=== PATIENT | male | born 1960 | race Caucasian/White ===

== ENCOUNTER 2018-01-24 13:36 | Outpatient (REF) | payer MEDICAID, SELFPAY ==
[2018-01-24 22:33] LABS: COMMENT (LAB VIEW ONLY) 84.69 mg/dL; Microalb ug/mg Crea 12.2 ug/mg Cr
== END 2018-01-24 13:56 ==
LOC: NCHCN 13:36
PROVIDERS: PCP Internal Medicine; Visit Provider Internal Medicine
DX: E11.9 Type 2 diabetes mellitus without complications (principal)
CPT/HCPCS: 82043; 82570

== ENCOUNTER 2018-07-25 12:47 | Outpatient (REF) | payer MEDICAID, SELFPAY ==
[2018-07-25 22:30] LABS: Anion Gap 9.4 mmol/L (3-11); BUN 15 mg/dL (7-18); CO2 28.6 mmol/L (21.0-32.0); Calcium 9.9 mg/dL (8.5-10.1); Chloride 100 mmol/L (98-107); Glucose 240 mg/dL (70-100); Potassium 4.8 mmol/L (3.5-5.1); Sodium 138 mmol/L (136-145)
== END 2018-07-25 13:07 ==
LOC: NCHCN 12:47
PROVIDERS: PCP Internal Medicine; Visit Provider Internal Medicine
DX: E11.65 Type 2 diabetes mellitus with hyperglycemia (principal); F43.20 Adjustment disorder, unspecified; E66.9 Obesity, unspecified
CPT/HCPCS: 80048

== ENCOUNTER 2019-11-07 16:29 | Outpatient (REF) | payer MEDICAID, SELFPAY ==
[2019-11-07 21:04] LABS: COMMENT (LAB VIEW ONLY) 63.17 mg/dL; Microalb ug/mg Crea 11.4 ug/mg Cr
== END 2019-11-07 16:49 ==
LOC: NCHCN 16:29
PROVIDERS: PCP Internal Medicine; Visit Provider Internal Medicine
DX: E11.65 Type 2 diabetes mellitus with hyperglycemia (principal)
CPT/HCPCS: 82043; 82570

== ENCOUNTER 2020-01-31 12:20 | Outpatient (REF) | payer MEDICAID, SELFPAY ==
[2020-01-31 20:51] LABS: ALT 26 U/L (16-63); AST 21 U/L (15-37); Alkaline Phosphatase 58 U/L (46-116); Bilirubin, Direct 0.19 mg/dL (0.00-0.20); Bilirubin, Total 0.7 mg/dL (0.2-1.0); Total Protein 7.1 g/dL (6.4-8.2)
== END 2020-01-31 12:40 ==
LOC: NCHCN 12:20
PROVIDERS: PCP Internal Medicine; Visit Provider Internal Medicine
DX: E11.9 Type 2 diabetes mellitus without complications (principal)
CPT/HCPCS: 80076

== ENCOUNTER 2020-07-22 11:35 | Outpatient (REF) | payer MEDICAID, SELFPAY ==
[2020-07-22 13:45] LABS: Anion Gap 0.3 mmol/L (3-11); BUN 17 mg/dL (7-18); CO2 26.7 mmol/L (21.0-32.0); Calcium 8.7 mg/dL (8.5-10.1); Calculated LDL 96 mg/dL (<100); Chloride 104 mmol/L (98-107); Cholesterol 162 mg/dL (<200); Glucose 121 mg/dL (74-106); HDL Cholesterol 53 mg/dL (40-60); Potassium 4.1 mmol/L (3.5-5.1); Sodium 131 mmol/L (136-145); Triglyceride 66 mg/dL (<150)
[2020-07-22 13:47] LABS: Hemoglobin A1C 9.3 % (<5.7)
== END 2020-07-22 11:36 | disposition home or self-care (01) ==
LOC: NCHCN 11:35
PROVIDERS: PCP Internal Medicine; Visit Provider Internal Medicine
DX: E11.65 Type 2 diabetes mellitus with hyperglycemia (principal); I10 Essential (primary) hypertension; E78.5 Hyperlipidemia, unspecified
CPT/HCPCS: 80048; 80061; 83036

== ENCOUNTER 2020-11-16 15:50 | Outpatient (REF) | payer MEDICARE, MEDICAID, SELFPAY ==
[2020-11-16 21:24] LABS: COMMENT (LAB VIEW ONLY) 83.51 mg/dL; Microalb ug/mg Crea 8.1 ug/mg Cr
== END 2020-11-16 15:51 | disposition home or self-care (01) ==
LOC: NCHCN 15:50
PROVIDERS: PCP Internal Medicine; Visit Provider Internal Medicine
DX: E11.9 Type 2 diabetes mellitus without complications (principal)
CPT/HCPCS: 82043; 82570

== ENCOUNTER 2021-02-03 09:12 | Outpatient (REF) | payer MEDICARE, MEDICAID, SELFPAY ==
[2021-02-12 17:14] LABS: Testosterone, Free 9.03 ng/dL (3.87-14.7); Testosterone, Total 258 ng/dL (240-950)
== END 2021-02-03 09:13 | disposition home or self-care (01) ==
LOC: NCHCN 09:12
PROVIDERS: PCP Internal Medicine; Visit Provider Internal Medicine
DX: N52.8 Other male erectile dysfunction (principal)
CPT/HCPCS: 84402; 84403

== ENCOUNTER 2021-02-25 15:06 | Outpatient (REF) | payer MEDICARE, MEDICAID, SELFPAY ==
[2021-02-27 09:29] LABS: COVID-19 RT-PCR UVMMC Result Negative (Negative)
== END 2021-02-25 15:07 | disposition home or self-care (01) ==
LOC: NCHCN 15:06
PROVIDERS: PCP Internal Medicine; Visit Provider Nurse Practitioner Family
DX: Z20.822 Contact with and (suspected) exposure to COVID-19 (principal); J06.9 Acute upper respiratory infection, unspecified
CPT/HCPCS: U0003

== ENCOUNTER 2021-06-28 16:43 | Outpatient (REF) | payer MEDICARE, MEDICAID, SELFPAY ==
[2021-06-28 22:00] LABS: Abs Immature Grans 0.02 10^3/uL (0.0-0.06); Absolute Basophil Count 0.02 10^3/uL (0.0-0.2); Absolute Eosinophil Count 0.02 10^3/uL (0.0-0.7); Absolute Lymphocyte Count 2.17 10^3/uL (1.2-3.4); Absolute Monocyte Count 0.54 10^3/uL (0.1-0.8); Absolute Neutrophil Count 4.05 10^3/uL (1.2-6.7); Basophils % 0.3; Eosinophils % 0.3; HCT 47.6 % (40.0-50.0); Immature Grans % 0.3; Lymphocytes % 31.8; MCH 31.7 pg (27.0-33.0); MCHC 33.6 % (32.0-36.0); MCV 94.3 fL (80-95); MPV 10.5 fL (8.0-11.0); Monocytes % 7.9; Neutrophils % 59.4; Nucleated RBC 0 %; Platelet Count 352 10^3/uL (130-400); RBC 5.05 10^6/uL (4.36-5.78); RDW 12.1 % (11.8-14.1); RDW-SD 42.2 fL; WBC 6.82 10^3/uL (4.4-10.8)
[2021-06-28 22:15] LABS: ALT 22 U/L (16-63); AST 11 U/L (15-37); Alkaline Phosphatase 77 U/L (46-116); Anion Gap 6.1 mmol/L (3-11); BUN 15 mg/dL (7-18); Bilirubin, Total 0.6 mg/dL (0.2-1.0); CO2 27.9 mmol/L (21.0-32.0); CREATININE 0.9 mg/dL (0.70-1.30); Calculated LDL 99 mg/dL (<100); Chloride 99 mmol/L (98-107); Cholesterol 155 mg/dL (<200); Glucose 175 mg/dL (74-106); HDL Cholesterol 35 mg/dL (40-60); Potassium 3.7 mmol/L (3.5-5.1); Sodium 133 mmol/L (136-145); Total Protein 7.5 g/dL (6.4-8.2); Triglyceride 108 mg/dL (<150)
== END 2021-06-28 16:44 | disposition home or self-care (01) ==
LOC: NCHCN 16:43
PROVIDERS: PCP Internal Medicine; Visit Provider Family Medicine
DX: E11.65 Type 2 diabetes mellitus with hyperglycemia (principal)
CPT/HCPCS: 80053; 80061; 85025

== ENCOUNTER 2022-01-03 11:49 | Outpatient (REF) | payer MEDICARE, MEDICAID, SELFPAY ==
[2022-01-03 16:25] LABS: Anion Gap 8.5 mmol/L (3-11); BUN 16 mg/dL (7-18); CO2 27.5 mmol/L (21.0-32.0); CREATININE 0.9 mg/dL (0.70-1.30); Calcium 8.8 mg/dL (8.5-10.1); Calculated LDL 69 mg/dL (<100); Chloride 104 mmol/L (98-107); Cholesterol 128 mg/dL (<200); Estimated GFR 98.38 (mL/min/1.73m2); Glucose 117 mg/dL (74-106); HDL Cholesterol 46 mg/dL (40-60); Potassium 3.9 mmol/L (3.5-5.1); Sodium 140 mmol/L (136-145); Triglyceride 69 mg/dL (<150)
[2022-01-04 17:35] LABS: Albumin, Ur < 0.6 mg/dL (See Note); Creatinine, Ur 43.4 mg/dL (See Note)
== END 2022-01-03 11:50 | disposition home or self-care (01) ==
LOC: NCHCN 11:49
PROVIDERS: PCP Internal Medicine; Visit Provider Nurse Practitioner Family
DX: E78.5 Hyperlipidemia, unspecified (principal); I10 Essential (primary) hypertension
CPT/HCPCS: 80048; 80061; 82043; 82570

== ENCOUNTER 2022-07-12 09:33 | Outpatient (REF) | payer MEDICARE, MEDICAID, SELFPAY ==
[2022-07-12 15:00] LABS: Hemoglobin A1C 9.6 % (<5.7)
== END 2022-07-12 09:34 | disposition home or self-care (01) ==
LOC: NCHCN 09:33
PROVIDERS: PCP Internal Medicine; Visit Provider Nurse Practitioner Family
DX: E11.65 Type 2 diabetes mellitus with hyperglycemia (principal); I10 Essential (primary) hypertension
CPT/HCPCS: 83036

== ENCOUNTER 2022-11-17 19:14 | Outpatient (REF) | payer MEDICARE, MEDICAID, SELFPAY ==
[2022-11-17 16:38] LABS: BUN 10 mg/dL (7-18); CREATININE 0.9 mg/dL (0.70-1.30); Calcium 8.7 mg/dL (8.5-10.1); Chloride 106 mmol/L (98-107); Estimated GFR 97.78 (mL/min/1.73m2); Glucose 214 mg/dL (74-106); Sodium 142 mmol/L (136-145)
== END 2022-11-17 19:15 | disposition home or self-care (01) ==
LOC: NCHCN 19:14
PROVIDERS: PCP Internal Medicine; Visit Provider Nurse Practitioner Family
DX: E11.65 Type 2 diabetes mellitus with hyperglycemia (principal); I10 Essential (primary) hypertension
CPT/HCPCS: 80048

== ENCOUNTER 2022-11-18 19:03 | Outpatient (REF) | payer MEDICARE, MEDICAID, SELFPAY ==
[2022-11-18 21:29] LABS: COMMENT (LAB VIEW ONLY) 69.77 mg/dL
== END 2022-11-18 19:04 | disposition home or self-care (01) ==
LOC: NCHCN 19:03
PROVIDERS: PCP Internal Medicine; Visit Provider Nurse Practitioner Family
DX: E11.65 Type 2 diabetes mellitus with hyperglycemia (principal)
CPT/HCPCS: 82043; 82570

== ENCOUNTER 2023-11-03 22:21 | Outpatient (REF) | payer MEDICARE, MEDICAID, SELFPAY ==
[2023-11-03 21:36] LABS: Hemoglobin A1C 8.7 % (<5.7)
[2023-11-03 21:37] LABS: ALT 27 U/L (16-63); AST 19 U/L (15-37); Alkaline Phosphatase 73 U/L (46-116); Anion Gap 8.6 mmol/L (3-11); BUN 14 mg/dL (7-18); Bilirubin, Total 0.68 mg/dL (0.2-1.0); CO2 27.4 mmol/L (21.0-32.0); Calculated LDL 84 mg/dL (<100); Chloride 107 mmol/L (98-107); Cholesterol 155 mg/dL (<200); Estimated GFR 85.63 (mL/min/1.73m2); Glucose 109 mg/dL (74-106); HDL Cholesterol 49 mg/dL (40-60); Sodium 143 mmol/L (136-145); Total Protein 7.4 g/dL (6.4-8.2); Triglyceride 110 mg/dL (<150)
--- OUTSIDE RECORDS SUMMARY | 2023-11-03 22:25 | XMS_ITS | Encounter Summary ---
Author Organization [facility] Address [address] [place] [address] Care Team Providers Care Office Admin Name Role Phone Tolu Pinto MD Primary Care Provider Brandy Hunt Primary Care Provider [phone] Encounter Details Date Type Department Care Team (Late st Contact Info) Description 01/04/2022 Lab Requisition [facility] Pathology & Laboratory Medicine - [address] [address] Outr Resulting Lab, Provider Social History Tobacco Use Types Packs/Day Years Used Date Smoking Tobacco: Never Assessed Sex and Gender Information Value Date Recorded Sex Assigned at Not on file Gender Identity Not on file Sexual Orientation Not on file documented as of this encounter Plan of Treatment Not on file documented as of this encounter Procedures Procedure Name Priority Date/Time Associated Diagnosis Comments URINE IQHVYNM-BH-QOZSCPQD NE RATIO (ACR) Routine 01/03/2022 11:45 EDT documented in this encounter Results * URINE QFKSCRT-GY-[id number] RATIO (ACR) (01/03/2022 11:45 EDT) Albumin, Urine <0.6 See Note mg/dL 01/04/2022 17:31 EDT [facility] Comment: NOTE: Reference range not established Creatinine, Urine 43.4 See Note mg/dL 01/04/2022 17:31 EDT [facility] Comment: NOTE: Reference range not established Lab Urine Albumin to Creatinine Ratio 01/04/2022 17:31 EDT [facility] Comment: Unable to calculate due to albumin result <0.6. Urine Albumin/Creatinine Ratio: Normal: <30 ug/mg Creatinine Moderately increased albuminuria: 30-300 ug/mg Creatinine Memo increased albuminuria: >300 ug/mg Creatinine Urine URINE SPECIMEN COLLECTION, CLEAN CATCH / Unknown 01/03/2022 11:45 EDT 01/04/2022 16:44 EDT Provider Outr Resulting Lab CHEMISTRY & BLOOD GAS ORDERABLES [facility] [address] [place] [address] documented in this encounter Visit Diagnoses Not on filedocumented in this encounter Care Teams Office Admin Relationship Specialty Start Date End Date Tolu Pinto MD PCP - General 02/28/15 08/01/23 Brandy Hernandez [address] [place] [address] PCP - General Internal Medicine - Primary Care 08/02/23 documented as of this encounter
--- OUTSIDE RECORDS SUMMARY | 2023-11-03 22:25 | XMS_ITS | Encounter Summary ---
Author Organization [facility] Address [address] [place] [address] Care Team Providers Care Rail Loader Name Role Phone Tolu Pinto MD Primary Care Provider Brandy Hunt Primary Care Provider Encounter Details Date Type Department Care Team (Late st Contact Info) Description 02/26/[address] [facility] Pathology & Laboratory Medicine - [facility] [address] [place], [place] [address] Outr Resulting Lab, Provider Social History Tobacco [...] Procedure Name Priority Date/Time Associated Diagnosis Comments ZZCOVID-19 TEST [facility] PCR Today 02/25/2021 14:15 EDT COVID-19 TESTING Routine 02/25/2021 14:1 5 EDT documented in this encounter Results * COVID-19 TEST [facility] PCR (02/25/2021 14:15 EDT) Swab ENTIRE NASOPHARYNX / Unknown 02/25/2021 14:15 EDT 02/26/2021 15:54 EDT Provider Outr Resulting Lab MICROBIOLOGY - GENERAL ORDERABLES [facility] [address] [place] [address] * COVID-19 TESTING (02/25/2021 14:15 EDT) COVID-19 rt-PCR Result Negative Negative 02/27/2021 9:19 EDT [facility] Comment: This test has not been FDA cleared or approved. This test has been authorized by FDA under an EUA for use by authorized laboratories. This test has been authorized only for detection of nucleic acid from 2019-nCoV, not for any other viruses or pathogens. This test is only authorized for the duration of the declaration that circumstances exist justifying the authorization of emergency use of in vitro diagnostic tests for detection and/or diagnosis of 2019-nCoV under section 564(b)(1) of Act, 21 U.S.C ?? 360bbb-3(b) (1), unless the authorization is terminated or revoked sooner. Negative results do not preclude 2019-nCoV infection and should not be used as the sole basis for treatment or other patient management decisions. Negative results must be combined with clinical observations, patient history, and epidemiological information. Testing was performed using the nithya SARS-CoV-2 assay ([employer] on the Nithya 6800 System Performing Lab Nithya 6800 [facility] 02/27/2021 9:19 EDT [facility] Swab 02/25/2021 14:1 5 EDT 02/26/2021 15:54 EDT Provider Outr Resulting Lab MICROBIOLOGY - GENERAL ORDERABLES Performing Organization Address City/State/[facility] Co de Phone Number [facility] [address] [place] [address] documented in this encounter Visit Diagnoses Not on filedocumented in this encounter Care Teams Rail Loader Relationship Specialty Start Date End Date Tolu Pinto MD PCP - General 02/28/15 08/01/23 Brandy Hernandez [address] [place] [address] PCP - General Internal Medicine - Primary Care 08/02/23 documented as of this encounter
--- OUTSIDE RECORDS SUMMARY | 2023-11-03 22:25 | XMS_ITS | Encounter Summary ---
Author Organization [facility] Address [address] [place] [address] Care Team Providers Care Parliamentary Archivist Name Role Phone Brandy Hernandez Primary Care Provider [phone] Reason for Visit * Reason Onset Date Comments Hearing Problem 08/02/2023 Encounter Details Date Type Department Care Team (Late st Contact Info) Description 08/02/2023 Telephone [facility] [address] [place] [address] Obdulio Gonzalez, PHD MS/CCC-A [address] [place] [address] [address] [place] [address] Hearing Problem Social History Tobacco Use Types Packs/Day Years Used Date Smoking Tobacco: Never Assessed Sex and Gender Information Value Date Recorded Sex Assigned at Not on file Gender Identity Not on file Sexual Orientation Not on file documented as of this encounter Miscellaneous Notes * Telephone Encounter - Dianna Poe - 09/15/2023 1338 EDT No return call from pt * Telephone Encounter - Dianna Poe - 09/14/2023 1417 EDT Left another message asking pt to call back Left detailed msg to call back Holding September 18 at 1:10/1:40 for pt * Telephone Encounter - Dianna oPe - 09/12/2023 0914 EDT Left detailed msg to call back Holding September 18 at 1:10/1:40 for pt * Telephone Encounter - Obdulio Gonzalez, PHD MS/CCC-A - 08/02/2023 0913 EDT Referral order dated 07/28/2023 and with the fax date of 08/02/2023 is on my desk this morning for sudden sensorineural hearing loss. Would like more information from the patient to determine best next steps. When patient calls back: Ask and document if there has been any change to the hearing since the onset of the problem or since starting the prednisone. I think Dr. Brandy Hernandez saw the patient on 07/28/2023 and described new right ear problem, suddenly lost hearing in his right ear about a week ago--this would make the hearing loss onset around 07/21/2023. Bilateral TMs translucent, auditory canals clear. He cannot hear finger rub adjacent to right ear at all, can hear finger rub adjacent to left ear easily Patient has diabetes on insulin. Asbest I can tell, prednisone 10 days 60 mg was prescribed on 07/28/2023 --no taper was described in the note, this would put the patient at 5 more days before the pills are gone. The patient should be scheduled for hearing test and ENT consult, I understand we're booking out quite far. I am happy to try to squeeze him in for hearing test, but I need an MD involved in clarifying questions about prednisone. documented in this encounter Plan of Treatment Not on file documented as of this encounter Visit Diagnoses Not on filedocumented in this encounter Care Teams Parliamentary Archivist Relationship Specialty Start Date End Date Brandy Hernandez [address] [place] [address] PCP - General Internal Medicine - Primary Care 08/02/23 documented as of this encounter
--- OUTSIDE RECORDS SUMMARY | 2023-11-03 22:25 | XMS_ITS | Clinical Summary ---
Author Organization [facility] Address [address] [place] [address] Care Team Providers Care Fitter Machinist Name Role Phone Brandy Hernandez Primary Care Provider [phone] Social History Tobacco Use Types Packs/Day Years Used Date Smoking Tobacco: Never Assessed Sex and Gender Information Value Date Recorded Sex Assigned at Not on file Gender Identity Not on file Sexual Orientation Not on file Plan of Treatment Health Maintenance Due Date Last Done Comments Hepatitis C Screen 1960 RSV Immunization ( o r 60+ Years) (1 - 1-dose 60+ series) 2022 COVID-19 Vaccine (2022-24 season) 2022 Care Teams Fitter Machinist Relationship Specialty Start Date End Date Brandy Hernandez [address] [place] [address] PCP - General Internal Medicine - Primary Care 08/02/23
--- OUTSIDE RECORDS SUMMARY | 2023-11-03 22:25 | XMS_ITS | Encounter Summary ---
Author Organization [facility] Address [address] [place] [address] Care Team Providers Care Timber Management Technician Name Role Phone Unavailable Primary Care Provider Unavailabl e Encounter Details Date Type Department Care Team (Latest Contact Info) Description 07/06/2001 9:07 EST - 07/06/2001 11:59 EST Hospital Encounter [facility] General Surgery Unit [address] [place], [place] [address] Leonard Bo MD [address] [place] [address] [place] [phone] Discharge Disposition: Home or Self Care Social History Tobacco Use Types Packs/Day Years Used Date Smoking Tobacco: Never Assessed Sex and Gender Information Value Date Recorded Sex Assigned at Not on file Gender Identity Not on file Sexual Orientation Not on file documented as of this encounter Discharge Disposition Disposition Code Departure Means Destination Home or Self Care documented in this encounter Plan of Treatment Not on file documented as of this encounter Visit Diagnoses Not on filedocumented in this encounter
--- OUTSIDE RECORDS SUMMARY | 2023-11-03 22:25 | XMS_ITS | Referral Summary ---
Author Organization [facility] Address [address] [place] [address] Care Team Providers Care Comb Winder Name Role Phone Brandy Hernandez Primary Care Provider [phone] Social History Tobacco Use Types Packs/Day Years Used Date Smoking Tobacco: Never Assessed Sex and Gender Information Value Date Recorded Sex Assigned at Not on file Gender Identity Not on file Sexual Orientation Not on file Plan of Treatment Not on file Care Teams Comb Winder Relationship Specialty Start Date End Date Brandy Hernandez [address] [place] [address] PCP - General Internal Medicine - Primary Care 08/02/23
--- OUTSIDE RECORDS SUMMARY | 2023-11-03 22:26 | XMS_ITS ---
Author Organization Unknown Address [address] [place], [place] [id number] Phone Care Team Providers Care Newspaper Writer Name Role Phone QIAN MELENDREZ Registered Nurse Unavailable BRIDGET JIMENEZ Registered Nurse Unavailable MITCH Vega Attending Unavailable DEJAH Marion Primary Unavailable UNLISTED PROVIDER - REQUESTED Xhandoff Un available Results TYPE AND SCREEN* - Collect D ate/Time: 07/28/2022 22:42 [facility] ID: [id number] [address] [place] [address], [id number] LOINC: Test Value Unit Reference Range Code Code System Flag Blood Group A 883-9 LOINC Rh (D) POSITIVE 26101-3 LOINC Antibody Screen NEGATIVE 1005-8 LOINC COMPREHENSIVE METABOLIC PANE L (CMP) - Collect Date/Time: 07/28/2022 22:42 [facility] ID: [id number] [address] [place] [address], [address] LOINC: 91318-6 Test Value Unit Reference Range Code Code System Flag GLUCOSE 305 mg/dL L=70 H=116 2345-7 LOINC H BUN 15 mg/dL L=6 H=25 3094-0 LOINC CREATININE 1.05 mg/dL L=0.67 H=1.17 2160-0 LOINC SODIUM SERUM 138 mmol/L L=136 H=145 2951-2 LOINC POTASSIUM SERUM 3.5 mmol/L L=3.4 H=5.2 2823-3 LOINC CHLORIDE SERUM 102 mmol/L L=96 H=110 2075-0 LOINC CARBON DIOXIDE (CO2) 27 mmol/L L=22 H=34 2028-9 LOINC ANION GAP 9.1 mmol/L 40700-3 LOINC CALCIUM SERUM 8.5 mg/dL L=8.2 H=10.2 20491-4 LOINC BILIRUBIN TOTAL 0.5 mg/dL L=0.0 H=1.3 1975-2 LOINC ALK. PHOS. 60 U/L L=46 H=116 6768-6 LOINC SGOT (AST) 16 U/L L=15 H=37 1920-8 LOINC SGPT (ALT) 23 U/L L=12 H=78 1742-6 LOINC TOTAL PROTEIN 7.2 gm/dL L=6.0 H=8.0 2885-2 LOINC ALBUMIN 3.8 gm/dL L=3.4 H=5.0 1751-7 LOINC AGE 61 years eGFR (non-Afr.Amer.) 72 mL/min 74017-8 LOINC eGFR (Afr-Tristanian) 87 mL/min 41565-4 LOINC CBC W/ DIFFERENTIAL* - Colle ct Date/Time: 07/28/2022 22:42 [facility] ID: [id number] [address] [place] [address], [address] LOINC: 03572-6 Test Value Unit Reference Range Code Code System Flag WBC 8.08 th/cmm L=5.00 H=10.00 6690-2 LOINC NEUT % 63.9 % L=40.0 H=80.0 LYMPH % 26.2 % L=10.0 H=50.0 MONO % 8.7 % L=2.0 H=12.0 18335-1 LOINC EOS % 0.6 % L=0.0 H=8.0 BASO % 0.5 % L=0.0 H=3.0 IG % 0.1 % L=0.0 H=1.1 2514-8 LOINC NRBC % 0.0 % L=0.0 H=0.0 15843-9 LOINC NEUT abs count 5.2 th/cmm L=1.6 H=8.4 751-8 LOINC LYMPH abs count 2.1 th/cmm L=1.5 H=4.0 731-0 LOINC MONO abs count 0.7 th/cmm L=0.2 H=1.0 742-7 LOINC EOS abs count 0.1 th/cmm L=0.0 H=0.5 711-2 LOINC BASO abs count 0.0 th/cmm L=0.0 H=0.2 704-7 LOINC IG abs count 0.0 th/cmm L=0.0 H=0.1 50914-1 LOINC NRBC abs count 0.0 mil/cmm L=0.0 H=0.0 35625-1 LOINC RBC 4.31 mil/cmm L=4.30 H=6.20 789-8 LOINC HEMOGLOBIN 14.4 gm/dL L=13.0 H=17.0 718-7 LOINC HEMATOCRIT 42 % L=45 H=52 4544-3 LOINC L MCV 98 fL L=82 H=92 787-2 LOINC H MCH 33.4 pg L=27.0 H=31.0 785-6 LOINC H MCHC 34.0 % L=32.0 H=36.0 786-4 LOINC RDW-SD 46.5 fL L=39.0 H=49.0 788-0 LOINC PLATELET COUNT 247 th/cmm L=150 H=450 777-[address] ANGIOGRAPHY HEAD NECK WWO 3D* - Completed: 07/29/2022 03:01 LOINC: [facility] [place], [place] [address] [employer] HEAD REPORT Patient Name: RENATE GORDON MRN: Sex: : Age: [id number] M [id number] Account: Accession: Admit: StayType: [id number] 07/28/2022 E/R Ordered: Order ID: Submitted: Ordering Provider: 07/28/2022 22:35 [id number] LUIS STAFFORD Completed: Technologist: Resulted: 07/29/2022 03:01 DLP 07/29/2022 11:32 Study Description: CT ANGIOGRAPHY HEAD NECK WWO 3D* Study Reason: trauma Technique: Noncontrast head CT followed by scanning from the aortic arch to the vertex during arterial phase of IV contrast administration. Axial, coronal and sagittal reformatted images including MIP images of the head and neck in all three planes. Delayed post contrast images of the head also performed. IV contrast: Omnipaque 350 100cc COMPARISON: FINDINGS: CT Head W/O, W IV contrast: Ventricles and Extra axial spaces: Normal in size and morphology for the patient's age. Hemorrhage: None. Cerebral parenchyma: Normal. Midline shift: None. Brainstem/Cerebellum: Normal. Calvarium: Normal. Visualized Paranasal sinuses/Mastoids: Mucous retention floor of right maxillary sinus. Fluid in the inferior mastoid air cells on the right. No bony destruction. Soft Tissues: Unremarkable. Enhancement: Normal. CTA Neck W: Common Carotid: Right: No dissection, occlusion or significant stenosis. Left: No dissection, occlusion or significant stenosis. External Carotid: Right: No occlusion or significant stenosis. Left: No occlusion or significant stenosis. Internal Carotid: Right: No dissection, occlusion or significant stenosis. Left: No dissection, occlusion or significant stenosis. Vertebral Artery: Right: No dissection, occlusion or significant stenosis. Left: No dissection, occlusion or significant stenosis. Subclavian arteries: Patent. Aortic Arch: Atherosclerotic changes. Pulmonary arteries: Unremarkable where visualized. Lung Apices: Normal. Bones: Degenerative changes of the cervical spine. Soft Tissues: Normal. CTA Brain W: Internal Carotid Arteries: Petrous: Normal. Cavernous: Normal. Cerebral: Normal. Anterior Cerebral Arteries: Right: No aneurysm, occlusion or significant stenosis. Left: No aneurysm, occlusion or significant stenosis. Middle Cerebral Arteries: Right: No aneurysm, occlusion or significant stenosis. Left: No aneurysm, occlusion or significant stenosis. Posterior cerebral Arteries: Right: No aneurysm, occlusion or significant stenosis. Left: No aneurysm, occlusion or significant stenosis. Vertebral Arteries: Right: No aneurysm, occlusion or significant stenosis. Left: No aneurysm, occlusion or significant stenosis. Basilar Artery: No aneurysm, occlusion or significant stenosis. IMPRESSION: 1. Normal CTA examination of the [place]. 2. Unremarkable CT Head. 3. Neck CTA: No evidence of vascular injury. No evidence of fracture. No significant vascular stenosis or dissection. Report Digitally Signed by Sabina Durham on 07/29/2022 11:[address] CHEST W IV CONTRAST - Com pleted: 07/29/2022 03:01 LOINC: [facility] [place], [place] [address] [employer] HEAD REPORT Patient Name: RENATE GORDON MRN: Sex: : Age: [id number] M 1960 [id number] Account: Accession: Admit: StayType: [id number] 07/28/2022 E/R Ordered: Order ID: Submitted: Ordering Provider: 07/28/2022 22:35 [id number] LUIS STAFFORD Completed: Technologist: Resulted: 07/29/2022 03:01 DLP 07/29/2022 11:39 Study Description: CT CHEST W IV CONTRAST Study Reason: Trauma Technique: Imaging Protocol: Axial computed tomography images with coronal and sagittal reformatted images were created and reviewed. CT examination of the chest was performed with intravenous infusion of 100 cc of Omnipaque 350. Comparison: Chest x-ray 23 March 2018 FINDINGS: Exam is limited by respiratory motion patient arm positioning creating streak artifact. Tracheobronchial tree: No bronchiectasis or mucous plugging. Pulmonary parenchyma: No consolidation or dominant measurable mass. No architectural distortion. Pleura: No effusion or pneumothorax. Heart: The heart is not dilated. Mild coronary artery calcifications are seen. No pericardial effusion. Aorta: Thoracic aorta non-dilated. No Atherosclerotic changes. Upper abdomen: Unremarkable. Lymph nodes: Within normal limits. Soft tissues: Unremarkable. Bones: No fractures. Prominent endplate osteophytes in the thoracic spine.. IMPRESSION: No acute posttraumatic abnormality. Radiation Optimization: All CT scans at this facility use at least one of these dose optimization techniques: automated exposure control; mA and/or kV adjustment per patient size (includes targeted exams where dose is matched to clinical indication); or iterative reconstruction. Report Digitally Signed by Sabina Durham on 07/29/2022 11:39 AM EDT Social History Type Status Start Date End Date Code Code Syst em Smoking History Never smoker (Never Smoked) 128730337 SNOMED CT Sex Male Vital Signs Vital Sign Value Unit [place] Value [place] Unit Date/Time Recent/Initial? Code Code System Body Mass Index 34.57 kg/m2 07/28/2022 22:18 Initial 44145 -5 LOINC Systolic Blood Pressure 155 mm[Hg] 07/29/2022 00:32 Most Recent 8480- 6 LOINC Diastolic Blood Pressure 78 mm[Hg] 07/29/2022 00:32 Most Recent 8462- 4 LOINC Systolic Blood Pressure 161 mm[Hg] 07/28/2022 22:18 Initial 8480- 6 LOINC Diastolic Blood Pressure 80 mm[Hg] 07/28/2022 22:18 Initial 8462- 4 LOINC Body Surface Area 2.47 m2 07/28/2022 22:18 Initial 3140- 1 LOINC Height 185.420 0 cm 73.00 in 07/28/2022 22:18 Initial 8302- 2 LOINC O2 Saturation 97 % 2022 00:32 Most Recent 22618 -5 LOINC O2 Saturation 100 % 2022 22:18 Initial 19436 -5 LOINC Pulse 72.0 /min 07/29/2022 00:32 Most Recent 8867- 4 LOINC Pulse 84.0 /min 07/28/2022 22:18 Initial 8867- 4 LOINC Respiration 18 /min 07/30/19 00:32 Most Recent 9279- 1 LOINC Respiration 18 /min 07/29/19 23 22:18 Initial 9279- 1 [facility] Weight 118.84 kg 262.00 lbs 07/28/2022 22:18 Initial 07847 -7 [facility] Medications Medication Start Date End Date Route Frequency Dose Code Code System Medication Instructions Home Meds Aspirin 325MG Oral Tablet 03/23/2018 07/28/2022 ORAL DAILY 325 MILLIGRAMS 409151 RxNorm TAKE 325 MILLIGRAMS ORAL DAILY Atorvastat in Calcium 20MG Oral Tablet 03/23/2018 Unknown ORAL BEDTIME 20 MILLIGRAMS 222989 RxNorm TAKE 20 MILLIGRAMS ORAL BEDTIME GLUCOTROL XL 5MG ORAL TABLET, EXTEN 03/23/2018 Unknown ORAL TWICE A DAY 10 MILLIGRAMS RxNorm TAKE 10 MILLIGRAMS ORAL TWICE A DAY Gabapentin 100MG Oral Capsule 03/23/2018 Unknown ORAL DAILY 100 MILLIGRAMS 144822 RxNorm TAKE 100 MILLIGRAMS ORAL DAILY JARDIANCE 10MG ORAL TABLET 03/23/2018 Unknown ORAL DAILY 10 MILLIGRAMS RxNorm TAKE 10 MILLIGRAMS ORAL DAILY KLONOPIN 0.5MG ORAL TABLET 03/23/2018 Unknown ORAL BEDTIME 0.5 MILLIGRAMS RxNorm TAKE 0.5 MILLIGRAMS ORAL BEDTIME LANTUS SOLOSTAR 100U/1ML SUBCUTANEO 03/23/2018 Unknown SUBCUTA NEOUS TWICE A DAY 70 UNIT RxNorm INJECT 70 UNIT SUBCUTANEOUS TWICE A DAY Lisinopril 20MG Oral Tablet 03/23/2018 Unknown ORAL DAILY 20 MILLIGRAMS 162453 RxNorm TAKE 20 MILLIGRAMS ORAL DAILY PARoxetine HCl 20MG Oral Tablet 03/23/2018 Unknown ORAL DAILY 20 MILLIGRAMS 5330948 RxNorm TAKE 20 MILLIGRAMS ORAL DAILY PROAIR HFA 0.09MG/1AC TUATION INHALA 03/23/2018 Unknown INHALAT ION EVERY 4 HOURS, NEEDED 2 PUFF RxNorm 2 PUFF INHALATION EVERY 4 HOURS, NEEDED SILDENAFIL CITRATE 100 MG 03/23/2018 Unknown ORAL DAILY 50 MILLIGRAMS RxNorm TAKE 50 MILLIGRAMS ORAL DAILY ZOCOR 20MG ORAL TABLET 03/23/2018 Unknown ORAL DAILY 20 MILLIGRAMS RxNorm TAKE 20 MILLIGRAMS ORAL DAILY Assessment You had the following problems:DIABETES 2HTN Hospital Discharge Instructions Should you have any questions prior to discharge, please contact a member of your healthcare team. If you have left the hospital and have any questions, please contact your primary care physician. Reason For Referral No Data Found Problems Problem Start Date Resolved Date Status Code Code System DIABETES 2 active [id number] SNOMED-CT HTN active 02421545 SNOMED-CT Allergies and Adverse Reactions Allergy Substance Reaction Severity Start Date Concern Status Co de Code System AMOXICILLIN Active 723 RxNorm PCN (PENICILLIN) Active Plan of Treatment EXPOSURE 03/26/2021 Encounters Encounter Diagnosis Start Date Code Code Sys tem Abrasion of scalp, initial encounter 07/28/2022 SNOMED-CT Personal Care Team Section Performer Name Performer Role Active Date Inactive Da te
--- OUTSIDE RECORDS SUMMARY | 2023-11-03 22:26 | XMS_ITS ---
Author Organization Unknown Address [address] [place], [place] [id number] Phone Care Team Providers Care Beater Out Name Role Phone DEJAH Marion Attending Unavailable Results [facility]* - Jake ect Date/Time: 03/26/2021 15:48 [facility] ID: [id number] [address] [place] [address], [phone] LOINC: 05402-7 Test Value Unit Reference Range Code Code System Flag SOURCE= Anterior nasal Tier- EXPOSURE SARS COV2 RNA: NEGATIVE REFERENCE RAN GE: NEGAT 55616-4 LOINC Social History Type Status Start Date End Date Code Code Syst em Smoking History Never smoker (Never Smoked) 871363234 SNOMED CT Sex Male Medications Medication Start Date End Date Route Frequency Dose Code Code System Medication Instructions Home Meds Aspirin 325MG Oral Tablet 03/23/2018 07/28/2022 ORAL DAILY 325 MILLIGRAMS 914702 RxNorm TAKE 325 MILLIGRAMS ORAL DAILY Atorvastat in Calcium 20MG Oral Tablet 03/23/2018 Unknown ORAL BEDTIME 20 MILLIGRAMS 067237 RxNorm TAKE 20 MILLIGRAMS ORAL BEDTIME GLUCOTROL XL 5MG ORAL TABLET, EXTEN 03/23/2018 Unknown ORAL TWICE A DAY 10 MILLIGRAMS RxNorm TAKE 10 MILLIGRAMS ORAL TWICE A DAY Gabapentin 100MG Oral Capsule 03/23/2018 Unknown ORAL DAILY 100 MILLIGRAMS 203536 RxNorm TAKE 100 MILLIGRAMS ORAL DAILY JARDIANCE [...] Tablet 03/23/2018 Unknown ORAL DAILY 20 MILLIGRAMS 152114 RxNorm TAKE 20 MILLIGRAMS ORAL DAILY PARoxetine HCl 20MG Oral Tablet 03/23/2018 Unknown ORAL DAILY 20 MILLIGRAMS 5132520 RxNorm TAKE 20 MILLIGRAMS ORAL DAILY PROAIR [...] Status Code Code System DIABETES 2 active 99125228 SNOMED-CT HTN active 74337494 SNOMED-CT Allergies and Adverse Reactions Allergy Substance Reaction Severity Start Date Concern Status Co de Code System AMOXICILLIN Active 723 RxNorm PCN (PENICILLIN) Active Plan of Treatment EXPOSURE 03/26/2021 Encounters Encounter Diagnosis Start Date Code Code Sys tem Exposure to SARS-CoV-2 03/26/2021 693151062 SNOME D-CT Personal Care Team Section Performer Name Performer Role Active Date Inactive Da te
== END 2023-11-03 22:22 | disposition home or self-care (01) ==
LOC: NCHCN 22:21
PROVIDERS: PCP Internal Medicine; Visit Provider Internal Medicine
DX: E11.65 Type 2 diabetes mellitus with hyperglycemia (principal); I10 Essential (primary) hypertension
CPT/HCPCS: 80053; 80061; 83036

== ENCOUNTER 2023-11-14 18:10 | Outpatient (REF) | payer MEDICARE, MEDICAID, SELFPAY ==
--- OUTSIDE RECORDS SUMMARY | 2023-11-14 18:14 | XMS_ITS | Encounter Summary ---
Author Organization [facility] Address [address] [place] [address] Care Team Providers Care Tool Radial Drill Press Set Up Operator Name Role Phone Brandy Hernandez Primary Care Provider Reason for Visit * Reason Onset Date Comments Hearing Problem 08/02/2023 Encounter Details Date Type Department Care Team (Late st Contact Info) Description 08/02/2023 Telephone [facility] - [facility] [address] [place] [address] Obdulio Gonzalez, PHD MS/CCC-A [address] [place] [address] [address] [place] [address] Hearing Problem Social History Tobacco [...] for pt * Telephone Encounter - Dianna Poe - 09/12/2023 0914 EDT Left detailed msg [...] on filedocumented in this encounter Care Teams Tool Radial Drill Press Set Up Operator Relationship Specialty Start Date End Date Brandy Hernandez [address] [place] [address] PCP - General Internal Medicine - Primary Care 08/02/23 documented as of this encounter
--- OUTSIDE RECORDS SUMMARY | 2023-11-14 18:14 | XMS_ITS | Encounter Summary ---
Author Organization [facility] Address [address] [place] [address] Care Team Providers Care Territory Sales Representative Name Role Phone Unavailable Primary Care Provider Unavailabl e Encounter Details Date Type Department Care Team (Latest Contact Info) Description 07/06/2001 9:07 EST - 07/06/2001 11:59 EST Hospital Encounter [facility] Unit [address] [place], [place] [address] Leonard Bo MD [address] [place] [address] [place] [phone] Discharge Disposition: Home or Self Care [...]
--- OUTSIDE RECORDS SUMMARY | 2023-11-14 18:14 | XMS_ITS | Referral Summary ---
Author Organization [facility] Address [address] [place] [address] Care Team Providers Care Yardage Control Operator Forming Name Role Phone Brandy Hernandez Primary Care Provider [phone] Social History Tobacco Use Types Packs/Day Years Used Date Smoking Tobacco: Never Assessed Sex and Gender Information Value Date Recorded Sex Assigned at Not on file Gender Identity Not on file Sexual Orientation Not on file Plan of Treatment Not on file Care Teams Yardage Control Operator Forming Relationship Specialty Start Date End Date Brandy Hernandez [address] [place] [address] PCP - General Internal Medicine - Primary Care 08/02/23
--- OUTSIDE RECORDS SUMMARY | 2023-11-14 18:14 | XMS_ITS | Clinical Summary ---
Author Organization [facility] Address [address] [place] [address] Care Team Providers Care Access Control Specialist Name Role Phone Brandy Hernandez Primary Care Provider [phone] Social History Tobacco Use Types Packs/Day Years [...] COVID-19 Vaccine (2022-24 season) 2022 Care Teams Access Control Specialist Relationship Specialty Start Date End Date Brandy Hernandez [address] [place] [address] PCP - General Internal Medicine - Primary Care 08/02/23
--- OUTSIDE RECORDS SUMMARY | 2023-11-14 18:14 | XMS_ITS | Encounter Summary ---
Author Organization [facility] Address [address] [place] [address] Care Team Providers Care Animal Feeder Name Role Phone Tolu Pinto MD Primary Care Provider Brandy Hunt Primary Care Provider [phone] Encounter Details Date Type Department Care Team (Late st Contact Info) Description 01/04/2022 Lab Requisition [facility] - [address] [address] Outr Resulting Lab, Provider Social History Tobacco [...] Name Priority Date/Time Associated Diagnosis Comments URINE [id number]-NI-HKPYWUMS NE RATIO (ACR) Routine 01/03/2022 11:45 EDT documented in this encounter Results * URINE [id number]-WZ-[id number] RATIO (ACR) (01/03/2022 11:45 EDT) Albumin, Urine <0.6 See Note mg/dL 01/04/2022 17:31 EDT [facility] Comment: NOTE: Reference range not established Creatinine, Urine 43.4 See Note mg/dL 01/04/2022 17:31 EDT [facility] Comment: NOTE: Reference range not established Lab Urine Albumin to Creatinine Ratio 01/04/2022 17:31 EDT [facility] Comment: Unable to calculate due to albumin result <0.6. Urine Albumin/Creatinine Ratio: Normal: <30 ug/mg Creatinine Moderately increased albuminuria: 30-300 ug/mg Creatinine Memo increased albuminuria: >300 ug/mg Creatinine Urine URINE SPECIMEN COLLECTION, CLEAN CATCH / Unknown 01/03/2022 11:45 EDT 01/04/2022 16:44 EDT Provider Outr Resulting Lab CHEMISTRY & BLOOD GAS ORDERABLES [facility] [address] [place] [address] documented in this encounter Visit Diagnoses Not on filedocumented in this encounter Care Teams Animal Feeder Relationship Specialty Start Date End Date Tolu Pinto MD PCP - General 02/28/15 08/01/23 Brandy Hernandez [address] [place] [address] PCP - General Internal Medicine - Primary Care 08/02/23 documented as of this encounter
--- OUTSIDE RECORDS SUMMARY | 2023-11-14 18:14 | XMS_ITS | Encounter Summary ---
Author Organization [facility] Address [address] [place] [address] Care Team Providers Care Patient Accounts Coordinator Name Role Phone Tolu Pinto MD Primary Care Provider Brandy Hunt Primary Care Provider [phone] Encounter Details Date Type Department Care Team (Late st Contact Info) Description 02/26/2021 Lab Requisition [facility] - [facility] [address] [place], [place] [address] Outr Resulting Lab, Provider Social History Tobacco [...] Outr Resulting Lab MICROBIOLOGY - GENERAL ORDERABLES [facility] [address] [place] [address] * COVID-19 TESTING (02/25/2021 14:15 EDT) COVID-19 rt-PCR Result Negative Negative 02/27/2021 9:19 EDT [facility] Comment: This test has [...] was performed using the nithya SARS-CoV-2 assay ([employer] on the Nithya 6800 System Performing Lab Nithya [address] [facility] Lab 02/27/2021 9:19 EDT [facility] Swab 02/25/2021 14:1 5 EDT 02/26/2021 15:54 EDT Provider Outr Resulting Lab MICROBIOLOGY - GENERAL ORDERABLES Performing Organization Address City/State/[facility] Co de Phone Number [facility] [address] [place] [address] documented in this encounter Visit Diagnoses Not on filedocumented in this encounter Care Teams Patient Accounts Coordinator Relationship Specialty Start Date End Date Tolu Pinto MD PCP - General 02/28/15 08/01/23 Brandy Hernandez [address] [place] [address] PCP - General Internal Medicine - Primary Care 08/02/23 documented as of this encounter
--- OUTSIDE RECORDS SUMMARY | 2023-11-14 18:15 | XMS_ITS ---
Author Organization Unknown Address [address] [place], [place] [phone] Phone Care Team Providers Care American Board Certified Orthotist Name Role Phone QIAN MELENDREZ Registered Nurse Unavailable BRIDGET JIMENEZ Registered Nurse Unavailable MITCH Vega Attending Unavailable DEJAH Marion Primary Unavailable UNLISTED PROVIDER - REQUESTED Xhandoff Un available Results TYPE AND SCREEN* - Collect D ate/Time: 07/28/2022 22:42 [facility] ID: [id number] [address] [place] [address], [phone] LOINC: Test Value Unit Reference Range Code Code System Flag Blood Group A 883-9 LOINC Rh (D) POSITIVE 36887-7 LOINC Antibody Screen NEGATIVE 1005-8 LOINC COMPREHENSIVE METABOLIC PANE L (CMP) - Collect Date/Time: 07/28/2022 22:42 [facility] ID: [id number] [address] [place] [address], [address] LOINC: 44741-2 Test Value Unit Reference Range Code Code [...] H=34 2028-9 LOINC ANION GAP 9.1 mmol/L 95297-0 LOINC CALCIUM SERUM 8.5 mg/dL L=8.2 H=10.2 87558-6 LOINC BILIRUBIN TOTAL 0.5 mg/dL L=0.0 H=1.3 1975-2 LOINC ALK. PHOS. 60 U/L L=46 H=116 6768-6 LOINC SGOT (AST) 16 U/L L=15 H=37 1920-8 LOINC SGPT (ALT) 23 U/L L=12 H=78 1742-6 LOINC TOTAL PROTEIN 7.2 gm/dL L=6.0 H=8.0 2885-2 LOINC ALBUMIN 3.8 gm/dL L=3.4 H=5.0 1751-7 LOINC AGE 61 years eGFR (non-Afr.Amer.) 72 mL/min 54304-5 LOINC eGFR (Afr-Puerto Rican) 87 mL/min 56097-8 LOINC CBC W/ DIFFERENTIAL* - Colle ct Date/Time: 07/28/2022 22:42 [facility] ID: [id number] [address] [place] [address], [address] LOINC: 48598-7 Test Value Unit Reference Range Code Code System Flag WBC 8.08 th/cmm L=5.00 H=10.00 6690-2 LOINC NEUT % 63.9 % L=40.0 H=80.0 LYMPH % 26.2 % L=10.0 H=50.0 MONO % 8.7 % L=2.0 H=12.0 45740-7 LOINC EOS % 0.6 % L=0.0 H=8.0 BASO % 0.5 % L=0.0 H=3.0 IG % 0.1 % L=0.0 H=1.1 2514-8 LOINC NRBC % 0.0 % L=0.0 H=0.0 82088-5 LOINC NEUT abs count 5.2 th/cmm L=1.6 H=8.4 751-8 LOINC LYMPH abs count 2.1 th/cmm L=1.5 H=4.0 731-0 LOINC MONO abs count 0.7 th/cmm L=0.2 H=1.0 742-7 LOINC EOS abs count 0.1 th/cmm L=0.0 H=0.5 711-2 LOINC BASO abs count 0.0 th/cmm L=0.0 H=0.2 704-7 LOINC IG abs count 0.0 th/cmm L=0.0 H=0.1 79915-8 LOINC NRBC abs count 0.0 mil/cmm L=0.0 H=0.0 64526-4 LOINC RBC 4.31 mil/cmm L=4.30 H=6.20 789-8 [...] WWO 3D* - Completed: 07/29/2022 03:01 LOINC: [facility] [place], [place] [address] [employer] PROPERTY WORKER REPORT Patient Name: RENATE GORDON MRN: Sex: : Age: [id number] M 1960 61 Account: Accession: Admit: StayType: [id number] 07/28/2022 E/R Ordered: Order ID: Submitted: Ordering Provider: 07/28/2022 22:35 [id number] LUIS STAFFORD Completed: Technologist: Resulted: 07/29/2022 03:01 [...] CONTRAST - Com pleted: 07/29/2022 03:01 LOINC: [facility] [place], [place] [address] [employer] PROPERTY WORKER REPORT Patient Name: RENATE GORDON MRN: Sex: : Age: [id number] M 1960 61 Account: Accession: Admit: StayType: [id number] 07/28/2022 E/R Ordered: Order ID: Submitted: Ordering Provider: 07/28/2022 22:35 [id number] LUIS STAFFORD Completed: Technologist: Resulted: 07/29/2022 03:01 [...] em Smoking History Never smoker (Never Smoked) 521448350 SNOMED CT Sex Male Vital Signs Vital Sign Value Unit Carroll Value Carroll Unit Date/Time Recent/Initial? Code Code System Body Mass Index 34.57 kg/m2 07/28/2022 22:18 Initial 11003 -5 LOINC Systolic Blood Pressure 155 mm[Hg] [...] Saturation 97 % 2022 00:32 Most Recent 86083 -5 LOINC O2 Saturation 100 % 2022 22:18 Initial 62177 -5 LOINC Pulse 72.0 /min 07/29/2022 00:32 Most Recent 8867- 4 LOINC Pulse 84.0 /min 07/28/2022 22:18 Initial 8867- 4 LOINC Respiration 18 /min 07/30/19 00:32 Most Recent 9279- 1 LOINC Respiration 18 /min 07/29/19 23 22:18 Initial 9279- 1 [facility] Weight 118.84 kg 262.00 lbs 07/28/2022 22:18 Initial 67174 -7 [facility] Medications Medication Start Date End Date Route Frequency Dose Code Code System Medication Instructions Home Meds Aspirin 325MG Oral Tablet 03/23/2018 07/28/2022 ORAL DAILY 325 MILLIGRAMS 567307 RxNorm TAKE 325 MILLIGRAMS ORAL DAILY Atorvastat in Calcium 20MG Oral Tablet 03/23/2018 Unknown ORAL BEDTIME 20 MILLIGRAMS 812329 RxNorm TAKE 20 MILLIGRAMS ORAL BEDTIME GLUCOTROL XL 5MG ORAL TABLET, EXTEN 03/23/2018 Unknown ORAL TWICE A DAY 10 MILLIGRAMS RxNorm TAKE 10 MILLIGRAMS ORAL TWICE A DAY Gabapentin 100MG Oral Capsule 03/23/2018 Unknown ORAL DAILY 100 MILLIGRAMS 455341 RxNorm TAKE 100 MILLIGRAMS ORAL DAILY JARDIANCE [...] Tablet 03/23/2018 Unknown ORAL DAILY 20 MILLIGRAMS 551086 RxNorm TAKE 20 MILLIGRAMS ORAL DAILY PARoxetine HCl 20MG Oral Tablet 03/23/2018 Unknown ORAL DAILY 20 MILLIGRAMS 7916656 RxNorm TAKE 20 MILLIGRAMS ORAL DAILY PROAIR [...] Status Code Code System DIABETES 2 active 24752444 SNOMED-CT HTN active 17421419 SNOMED-CT Allergies and Adverse Reactions Allergy Substance [...]
--- OUTSIDE RECORDS SUMMARY | 2023-11-14 18:15 | XMS_ITS ---
Author Organization Unknown Address [address] [place] [phone] Phone Care Team Providers Care Fixture Maker Name Role Phone DEJAH Marion Attending Unavailable Results [facility]* - Jake ect Date/Time: 03/26/2021 15:48 [facility] ID: [id number] [address] [place], [place], [phone] LOINC: 31915-1 Test Value Unit Reference Range Code Code System Flag SOURCE= Anterior nasal Tier- EXPOSURE SARS COV2 RNA: NEGATIVE REFERENCE RAN GE: NEGAT 44888-9 LOINC Social History Type Status Start Date End Date Code Code Syst em Smoking History Never smoker (Never Smoked) 524967714 SNOMED CT Sex Male Medications Medication Start Date End Date Route Frequency Dose Code Code System Medication Instructions Home Meds Aspirin 325MG Oral Tablet 03/23/2018 07/28/2022 ORAL DAILY 325 MILLIGRAMS 843146 RxNorm TAKE 325 MILLIGRAMS ORAL DAILY Atorvastat in Calcium 20MG Oral Tablet 03/23/2018 Unknown ORAL BEDTIME 20 MILLIGRAMS 439795 RxNorm TAKE 20 MILLIGRAMS ORAL BEDTIME GLUCOTROL XL 5MG ORAL TABLET, EXTEN 03/23/2018 Unknown ORAL TWICE A DAY 10 MILLIGRAMS RxNorm TAKE 10 MILLIGRAMS ORAL TWICE A DAY Gabapentin 100MG Oral Capsule 03/23/2018 Unknown ORAL DAILY 100 MILLIGRAMS 188570 RxNorm TAKE 100 MILLIGRAMS ORAL DAILY JARDIANCE [...] Tablet 03/23/2018 Unknown ORAL DAILY 20 MILLIGRAMS 557159 RxNorm TAKE 20 MILLIGRAMS ORAL DAILY PARoxetine HCl 20MG Oral Tablet 03/23/2018 Unknown ORAL DAILY 20 MILLIGRAMS 1339913 RxNorm TAKE 20 MILLIGRAMS ORAL DAILY PROAIR [...] Status Code Code System DIABETES 2 active 86717647 SNOMED-CT HTN active 00263588 SNOMED-CT Allergies and Adverse Reactions Allergy Substance Reaction Severity Start Date Concern Status Co de Code System AMOXICILLIN Active 723 RxNorm PCN (PENICILLIN) Active Plan of Treatment EXPOSURE 03/26/2021 Encounters Encounter Diagnosis Start Date Code Code Sys tem Exposure to SARS-CoV-2 03/26/2021 603884260 SNOME D-CT Personal Care Team Section Performer Name Performer Role Active Date Inactive Da te
[2023-11-14 22:38] LABS: COMMENT (LAB VIEW ONLY) 81.41 mg/dL; Microalb ug/mg Crea 4.3 ug/mg Cr
== END 2023-11-14 18:11 | disposition home or self-care (01) ==
LOC: NCHCN 18:10
PROVIDERS: PCP Internal Medicine; Visit Provider Internal Medicine
DX: E11.65 Type 2 diabetes mellitus with hyperglycemia (principal)
CPT/HCPCS: 82043; 82570

== ENCOUNTER 2024-11-06 20:00 | Outpatient (REF) | payer MEDICARE, MEDICAID, SELFPAY ==
[2024-11-06 17:01] LABS: HCT 42.9 % (40.0-50.0); HGB 14.3 g/dL (13.5-17.5); MCH 32.2 pg (27.0-33.0); MCHC 33.3 % (32.0-36.0); MCV 97 fL (80-95); MPV 11.1 fL (8.0-11.0); Platelet Count 265 10^3/uL (130-400); RBC 4.44 10^6/uL (4.36-5.78); RDW 13.0 % (11.8-14.1); RDW-SD 46.4 fL; WBC 8.68 10^3/uL (4.4-10.8)
[2024-11-06 17:21] LABS: ALT 28 U/L (16-63); AST 22 U/L (15-37); Albumin 3.8 g/dL (3.4-5.0); Alkaline Phosphatase 72 U/L (46-116); Anion Gap 10.1 mmol/L (3-11); BUN 12 mg/dL (7-18); Bilirubin, Total 0.6 mg/dL (0.2-1.0); CO2 26.9 mmol/L (21.0-32.0); Calcium 9.0 mg/dL (8.5-10.1); Chloride 106 mmol/L (98-107); Estimated GFR 104.18 (mL/min/1.73m2); Glucose 128 mg/dL (74-106); Potassium 4.0 mmol/L (3.5-5.1); Sodium 143 mmol/L (136-145); Total Protein 7.2 g/dL (6.4-8.2)
[2024-11-06 23:07] LABS: COMMENT (LAB VIEW ONLY) 76.67 mg/dL; Microalb ug/mg Crea 5.6 ug/mg Cr
[2024-11-07 19:12] LABS: PSA, Screening 1.3 ng/mL (<=4.5)
== END 2024-11-06 20:01 | disposition home or self-care (01) ==
LOC: NCHCN 20:00
PROVIDERS: PCP Internal Medicine; Visit Provider Internal Medicine
DX: Z12.5 Encounter for screening for malignant neoplasm of prostate (principal); I10 Essential (primary) hypertension; E11.65 Type 2 diabetes mellitus with hyperglycemia
CPT/HCPCS: 80053; 84153; 85027; 82043; 82570